=== PATIENT | female | born 1950 | race Caucasian/White ===

== ENCOUNTER → 2016-06-29 | Outpatient (CLI) | payer OTHER | LOC: CIMAGING 14:03 | DX: Z12.31 Encounter for screening mammogram for malignant neoplasm of breast (principal) | CPT/HCPCS: G0202 ==

== ENCOUNTER → 2017-06-30 | Outpatient (CLI) | payer OTHER | LOC: CIMAGING 12:19 | PROVIDERS: ATTEND Family Medicine | DX: Z12.31 Encounter for screening mammogram for malignant neoplasm of breast (principal) ==

== ENCOUNTER → 2017-08-04 | Outpatient (CLI) | payer OTHER | LOC: CIMAGING 14:14 | PROVIDERS: ATTEND Physician Assistant | DX: Z98.1 Arthrodesis status (principal); M43.13 Spondylolisthesis, cervicothoracic region | CPT/HCPCS: 72050-PO ==

== ENCOUNTER → 2018-05-05 | Outpatient (CLI) | payer OTHER | LOC: CIMAGING 20:40 | PROVIDERS: ATTEND Emergency Medicine | DX: M25.522 Pain in left elbow (principal); W19.XXXA Unspecified fall, initial encounter; M25.422 Effusion, left elbow | CPT/HCPCS: 73080-PO; 73090-PO ==

== ENCOUNTER → 2018-08-15 | Outpatient (CLI) | payer OTHER | LOC: CIMAGING 14:28 | PROVIDERS: ATTEND Nurse Practitioner | DX: Z12.31 Encounter for screening mammogram for malignant neoplasm of breast (principal); N63.21 Unspecified lump in the left breast, upper outer quadrant ==

== ENCOUNTER → 2018-08-19 | Outpatient (CLI) | payer OTHER | LOC: FIMAGING 14:49 | PROVIDERS: ATTEND Nurse Practitioner | DX: N63.0 Unspecified lump in unspecified breast (principal) ==